=== PATIENT | female | born 1945 | race Caucasian/White ===

== ENCOUNTER 2021-08-01 15:48 | Emergency (ER) | payer OTHER, SELFPAY ==
[~2021-08-01] VITALS: Ht 157.5 cm; Wt 83.0 kg
--- NOTE | 2021-08-01 15:50 | NUR ---
Placed in room 1 . Placed on manager equipment, blood pressure machine and pulse oximeter. To gown for exam. Side rails up.
--- NOTE | 2021-08-01 15:50 | NUR ---
Pt bib ambulance with c/o chest pain, non-radiating 5/10 x approx 2 hours. Reports it started after she was cleaning with some chemicals that she had used before. She thought it was indigestion and took some tums without any relief. EKG show NSR, v/s stable, no acute distress noted.
[2021-08-01 15:53] VITALS: BP_SYST 158
--- NOTE | 2021-08-01 15:55 | NUR ---
ER Dr. Segovia at bedside examining patient.
--- NOTE | 2021-08-01 16:09 | NUR ---
Radiology at bedside for CXR
[2021-08-01 16:44] LABS: BASOPHILS % (AUTO) 0.2 % (0.0-2.0); EOSINOPHILS # (AUTO) 0.1 K/uL (0.0-0.4); EOSINOPHILS % (AUTO) 0.6 % (0.0-4.0); HEMATOCRIT 36.7 % (36-48); HEMOGLOBIN 12.3 g/dL (12.0-16.0); LYMPHOCYTES # (AUTO) 0.9 K/uL (1.0-5.5); LYMPHOCYTES % (AUTO) 10.2 % (20.5-51.5); MEAN CORPUSCULAR HEMOGLOBIN 30 pg (27-31); MEAN CORPUSCULAR HGB CONC 33 % (32-36); MEAN CORPUSCULAR VOLUME 88 fL (79.0-98.0); MONOCYTES # (AUTO) 0.5 K/uL (0.0-1.0); MONOCYTES % (AUTO) 5.7 % (1.7-9.3); NEUTROPHILS # (AUTO) 7.1 K/uL (1.8-7.7); NEUTROPHILS % (AUTO) 83.3 % (40.0-70.0); PLATELET COUNT (AUTO) 217 K/uL (130-430); RED BLOOD CELL COUNT(AUTO) 4.16 MIL/uL (4.2-6.2); RED CELL DISTRIBUTION WIDTH 14.7 % (9.0-15.0); WHITE BLOOD COUNT (AUTO) 8.5 K/uL (4.8-10.8)
[2021-08-01 16:59] LABS: ANION GAP 13 (5-15); CALCIUM 9.4 mg/dL (8.4-11.0); CHLORIDE 100 mmol/L (98-107); CREATININE 0.93 mg/dL (0.55-1.30); GLUCOSE 128 mg/dL (70-99); POTASSIUM 3.4 mmol/L (3.5-5.1); SODIUM SERUM 139 mmol/L (136-145); UREA NITROGEN, BLOOD 19 mg/dL (8-21)
[2021-08-01 17:05] LABS: ALANINE AMINOTRANSFERASE 26 U/L (12-78); ALBUMIN 3.7 g/dL (3.4-4.8); ASPARTATE AMINOTRANSFERASE 20 U/L (10-37); TOTAL BILIRUBIN 0.3 mg/dL (0.0-1.0)
--- NOTE | 2021-08-01 19:00 | NUR ---
Care of patient endorsed to MANNIE Fry. Pt currently resting in bed, no acute distress noted.
--- NOTE | 2021-08-01 19:08 | NUR ---
REPORT RECEIEVED FROM MANNIE MOYER. PT PENDING SECOND TROPONIN LEVEL. PT MADE AWARE.
[2021-08-01] MEDS ORDERED: OMEP20TA20 PO (19:53)
[2021-08-01 20:15] VITALS: BP_SYST 158
--- NOTE | 2021-08-01 20:16 | NUR ---
Patient given written and verbal discharge instructions and verbalizes understanding. DR. TARUN LANGLEY MD discussed with patient the results and treatment provided. Patient in stable condition. ID arm band removed. Rx of OMEPRAZOLE given. Patient educated on pain management and to follow up with PMD. Pain Scale 0/10. Opportunity for questions provided and answered. Medication side effect fact sheet provided.
== END 2021-08-01 20:15 | disposition home or self-care (01) ==
LOC: SED 15:48
DX: R07.2 Precordial pain (principal); I10 Essential (primary) hypertension; E11.9 Type 2 diabetes mellitus without complications; Z79.899 Other long term (current) drug therapy
CPT/HCPCS: 36415; 71045; 80053; 84484; 85025; 93005; 99285

== ENCOUNTER 2022-09-30 15:07 | Emergency (ER) | payer OTHER ==
[~2022-09-30] VITALS: Ht 157.5 cm; Wt 83.9 kg
[~2022-09-30 15:07] MED LIST: OMEP20TA20 PO
[2022-09-30 15:10] VITALS: BP_SYST 146
--- NOTE | 2022-09-30 15:10 | NUR ---
Patient triaged and placed in waiting room. VSS and patient appears in no acute distress at this time. Accompanied by SELF, awaiting available bed, and MD notified of need for MSE.
--- NOTE | 2022-09-30 15:10 | NUR ---
Note [place] in ED - 09/30/22 at 1551 by [email or web address] Placed in room 08 . Placed on registered nurse cardiac telemetry, blood pressure machine and pulse oximeter. To gown for exam. Side rails up. Report given to MANNIE TALBERT.
--- NOTE | 2022-09-30 15:51 | NUR ---
Patient to ER bed 8 to gown for evaluation. Side rails up. Report given to MANNIE TALBERT.
--- NOTE | 2022-09-30 16:20 | NUR ---
MD at bedside assessing pt
[2022-09-30] MEDS ORDERED: ONDANSETRON HCL 4 MG/2 ML VIAL IVP ONE (16:30)
[2022-09-30] MEDS ORDERED: MORPHINE 4 MG INJ. 4 MG/ML VIAL IVP ONE (16:30)
[2022-09-30] MEDS ORDERED: ACETAMINOPHEN 500 MG TABLET PO ONE (16:30)
--- NOTE | 2022-09-30 17:01 | NUR ---
Pt came from home where she complained of left sharp pain and numbness to left leg radiating from inner thight to lower foot. Pt afebrile and on plavix with history of diabetes, HTN, and DVT after childbirth. Pt complains of right foot numbness as well and sensitivity to codiene as it makes her throw up
[2022-09-30 17:02] LABS: BASOPHILS % (AUTO) 0.3 % (0.0-2.0); EOSINOPHILS # (AUTO) 0.1 K/uL (0.0-0.4); EOSINOPHILS % (AUTO) 0.7 % (0.0-4.0); HEMATOCRIT 34.6 % (36-48); LYMPHOCYTES # (AUTO) 1.2 K/uL (1.0-5.5); LYMPHOCYTES % (AUTO) 12.1 % (20.5-51.5); MEAN CORPUSCULAR HEMOGLOBIN 30 pg (27-31); MEAN CORPUSCULAR HGB CONC 35 % (32-36); MEAN CORPUSCULAR VOLUME 86 fL (79.0-98.0); MONOCYTES # (AUTO) 0.9 K/uL (0.0-1.0); MONOCYTES % (AUTO) 8.8 % (1.7-9.3); NEUTROPHILS # (AUTO) 7.9 K/uL (1.8-7.7); NEUTROPHILS % (AUTO) 78.1 % (40.0-70.0); PLATELET COUNT (AUTO) 228 K/uL (130-430); RED BLOOD CELL COUNT(AUTO) 4.01 MIL/uL (4.2-6.2); RED CELL DISTRIBUTION WIDTH 14.4 % (9.0-15.0); WHITE BLOOD COUNT (AUTO) 10.2 K/uL (4.8-10.8)
[2022-09-30 17:32] LABS: ALANINE AMINOTRANSFERASE 38 U/L (12-78); ALBUMIN 3.6 g/dL (3.4-4.8); ANION GAP 7 (5-15); ASPARTATE AMINOTRANSFERASE 32 U/L (10-37); CALCIUM 9.8 mg/dL (8.4-11.0); CHLORIDE 103 mmol/L (98-107); GLUCOSE 116 mg/dL (70-99); TOTAL BILIRUBIN 0.5 mg/dL (0.0-1.0); UREA NITROGEN, BLOOD 16 mg/dL (8-21)
--- NOTE | 2022-09-30 18:23 | NUR ---
Pt states pain medication helped reduce pain, resting comfortably in bed
[2022-09-30] MEDS ORDERED: ACET-2634 PO (18:47)
--- NOTE | 2022-09-30 19:12 | NUR ---
Pt discharged, IV taken out, wrist band removed. Pt left stable and feeling good about visit, educated on medications and proper care going forward
[2022-09-30 19:13] VITALS: BP_SYST 146
--- NOTE | 2022-09-30 19:13 | NUR ---
Patient given written and verbal discharge instructions and verbalizes understanding. ER MD discussed with patient the results and treatment provided. Patient in stable condition. ID arm band removed. IV catheter removed intact and dressing applied, no active bleeding. Rx of tYLENOL given. Patient educated on pain management and to follow up with PMD. Opportunity for questions provided and answered. Medication side effect fact sheet provided.
== END 2022-09-30 19:13 | disposition home or self-care (01) ==
LOC: SED 15:07
DX: M79.662 Pain in left lower leg (principal); R20.2 Paresthesia of skin; E78.5 Hyperlipidemia, unspecified; E11.9 Type 2 diabetes mellitus without complications; I10 Essential (primary) hypertension; Z88.5 Allergy status to narcotic agent; Z79.899 Other long term (current) drug therapy
CPT/HCPCS: 99285; 96374; 93971; 96375; 80053; 82962; 85025; 36415; 73502; 73564; J2405; J2270

== ENCOUNTER 2023-06-27 05:17 | Emergency (ER) | payer OTHER ==
[~2023-06-27] VITALS: Ht 154.9 cm; Wt 82.1 kg
[~2023-06-27 05:17] MED LIST changes: +ACET-2634 PO
[2023-06-27 05:35] VITALS: BP_SYST 138; PULSE 79; RESP 19; TEMP 97.9; O2SAT 99
[2023-06-27] MEDS ORDERED: NACL 0.9% 1,000 ML IV ONE (05:45)
[2023-06-27 06:02] LABS: BASOPHILS % (AUTO) 0.4 % (0.0-2.0); EOSINOPHILS # (AUTO) 0.1 K/uL (0.0-0.4); EOSINOPHILS % (AUTO) 0.9 % (0.0-4.0); HEMATOCRIT 35.2 % (36-48); HEMOGLOBIN 11.4 g/dL (12.0-16.0); LYMPHOCYTES # (AUTO) 0.9 K/uL (1.0-5.5); MEAN CORPUSCULAR HEMOGLOBIN 28 pg (27-31); MEAN CORPUSCULAR HGB CONC 32 % (32-36); MEAN CORPUSCULAR VOLUME 87 fL (79.0-98.0); MONOCYTES % (AUTO) 10.4 % (1.7-9.3); NEUTROPHILS # (AUTO) 7.3 K/uL (1.8-7.7); NEUTROPHILS % (AUTO) 78.3 % (40.0-70.0); PLATELET COUNT (AUTO) 244 K/uL (130-430); RED BLOOD CELL COUNT(AUTO) 4.06 MIL/uL (4.2-6.2); RED CELL DISTRIBUTION WIDTH 15.5 % (9.0-15.0); WHITE BLOOD COUNT (AUTO) 9.4 K/uL (4.8-10.8)
[2023-06-27 06:28] LABS: BILIRUBIN,URINE 1+ (NEGATIVE); CLARITY/URINE CLEAR (CLEAR); COLOR,URINE YELLOW (YELLOW); GLUCOSE,URINE NEGATIVE (NEGATIVE); KETONES,URINE NEGATIVE (NEGATIVE); LEUKOCYTE ESTERASE ,URINE NEGATIVE (NEGATIVE); NITRITE, URINE NEGATIVE (NEGATIVE); PROTEIN URINE NEGATIVE (NEGATIVE)
[2023-06-27] MEDS ORDERED: KETOROLAC TROMETHAMINE 30 MG VIAL IVP ONE (06:30)
[2023-06-27 06:32] LABS: ANION GAP 7 (5-15); CALCIUM 9.2 mg/dL (8.4-11.0); CARBON DIOXIDE 27 mmol/L (23-29); CHLORIDE 101 mmol/L (98-107); GLUCOSE 108 mg/dL (74-106); POTASSIUM 3.9 mmol/L (3.5-5.1); SODIUM SERUM 135 mmol/L (136-145); UREA NITROGEN, BLOOD 13 mg/dL (8-21)
[2023-06-27 06:34] LABS: BLOOD, URINE TRACE (NEGATIVE)
[2023-06-27 06:36] LABS: BACTERIA,URINE None Seen /HPF (None Seen); WBC,URINE 0-3 /HPF (0-3)
[2023-06-27 06:37] LABS: ALANINE AMINOTRANSFERASE 18 U/L (12-78); ALBUMIN 2.8 g/dL (3.4-4.8); ASPARTATE AMINOTRANSFERASE 16 U/L (10-37); TOTAL BILIRUBIN 0.6 mg/dL (0.0-1.0); TOTAL PROTEIN, SERUM 7.5 g/dL (6.4-8.3)
[2023-06-27] MEDS ORDERED: ONDANSETRON HCL 4 MG/2 ML VIAL IVP ONE (07:30)
[2023-06-27] MEDS ORDERED: metroNIDAZOLE 500 mg/NS 100 ML IV ONE (10:00)
[2023-06-27] MEDS ORDERED: IBUP-1969 PO ×2 (10:35)
[2023-06-27] MEDS ORDERED: MAGN296S8 PO (10:35)
[2023-06-27] MEDS ORDERED: ACET-2634 PO (10:49)
[2023-06-27 11:03] VITALS: BP_SYST 132; PULSE 75; RESP 16; TEMP 97.9; O2SAT 97
[2023-06-27] MEDS ORDERED: PIPERACILLIN/TAZO 3.375/DEX-IS 50 ML IV SCH (12:00)
== END 2023-06-27 10:40 | disposition left against medical advice (07) ==
LOC: SED 05:17 → SMU 10:26 → UNDOADMIN 10:26 → UNDODISIN 10:40 → SMU 10:40
DX: K57.92 Diverticulitis of intestine, part unspecified, without perforation or abscess without bleeding (principal); R10.32 Left lower quadrant pain; E11.9 Type 2 diabetes mellitus without complications; I10 Essential (primary) hypertension; E78.5 Hyperlipidemia, unspecified; Z88.5 Allergy status to narcotic agent; Z88.6 Allergy status to analgesic agent; Z79.899 Other long term (current) drug therapy
CPT/HCPCS: 99285; 74176; 96374; 96361; 96375; 80053; 81000; 85025; 87040; 36415; 76376; 83605; J1885; J2405; J7030; J2543

== ENCOUNTER 2023-08-26 06:54 | Emergency (ER) | payer OTHER ==
[~2023-08-26] VITALS: Ht 157.5 cm; Wt 81.2 kg
[~2023-08-26 06:54] MED LIST changes: +MAGN296S8 PO
[2023-08-26 07:05] VITALS: BP_SYST 163; PULSE 69; RESP 16; TEMP 97.9; O2SAT 100
[2023-08-26 08:17] LABS: BLOOD, URINE 2+ (NEGATIVE); GLUCOSE,URINE 1+ (NEGATIVE); KETONES,URINE TRACE (NEGATIVE); NITRITE, URINE POSITIVE (NEGATIVE); PROTEIN URINE 2+ (NEGATIVE)
[2023-08-26 08:17] LABS: BASOPHILS % (AUTO) 0.3 % (0.0-2.0); EOSINOPHILS # (AUTO) 0.1 K/uL (0.0-0.4); EOSINOPHILS % (AUTO) 0.8 % (0.0-4.0); HEMATOCRIT 35.7 % (36-48); HEMOGLOBIN 11.3 g/dL (12.0-16.0); LYMPHOCYTES # (AUTO) 0.8 K/uL (1.0-5.5); LYMPHOCYTES % (AUTO) 11.8 % (20.5-51.5); MEAN CORPUSCULAR HEMOGLOBIN 28 pg (27-31); MEAN CORPUSCULAR HGB CONC 32 % (32-36); MEAN CORPUSCULAR VOLUME 89 fL (79.0-98.0); MONOCYTES # (AUTO) 0.6 K/uL (0.0-1.0); MONOCYTES % (AUTO) 8.6 % (1.7-9.3); NEUTROPHILS # (AUTO) 5.6 K/uL (1.8-7.7); NEUTROPHILS % (AUTO) 78.5 % (40.0-70.0); PLATELET COUNT (AUTO) 256 K/uL (130-430); RED BLOOD CELL COUNT(AUTO) 4.03 MIL/uL (4.2-6.2); RED CELL DISTRIBUTION WIDTH 17.1 % (9.0-15.0); WHITE BLOOD COUNT (AUTO) 7.1 K/uL (4.8-10.8)
[2023-08-26 08:19] LABS: BILIRUBIN,URINE NEGATIVE (NEGATIVE); CLARITY/URINE HAZY (CLEAR); UROBILINOGEN,URINE >=8 (0.2-1.0)
[2023-08-26 08:20] LABS: COLOR,URINE ORANGE (YELLOW)
[2023-08-26 08:22] LABS: LEUKOCYTE ESTERASE ,URINE 3+ (NEGATIVE)
[2023-08-26 08:29] LABS: BACTERIA,URINE MANY /HPF (None Seen); WBC,URINE 20-50 /HPF (0-3)
[2023-08-26 08:31] LABS: MUCUS,URINE 1+ /LPF (None Seen)
[2023-08-26 08:32] LABS: ANION GAP 6 (5-15); CARBON DIOXIDE 29 mmol/L (23-29); CHLORIDE 98 mmol/L (98-107); GLUCOSE 153 mg/dL (74-106); POTASSIUM 3.9 mmol/L (3.5-5.1); SODIUM SERUM 133 mmol/L (136-145)
[2023-08-26 08:33] LABS: CALCIUM 9.6 mg/dL (8.4-11.0); CREATININE 0.82 mg/dL (0.55-1.30); UREA NITROGEN, BLOOD 16 mg/dL (8-21)
[2023-08-26] MEDS ORDERED: cefTRIAXone 1 GM in LIDOCAINE 1%, 20 ML MDV 2.1 ML IM ONE (09:00)
[2023-08-26 09:06] LABS: ALANINE AMINOTRANSFERASE 24 U/L (12-78); ALBUMIN 3.4 g/dL (3.4-4.8); ASPARTATE AMINOTRANSFERASE 19 U/L (10-37); TOTAL BILIRUBIN 0.7 mg/dL (0.0-1.0); TOTAL PROTEIN, SERUM 7.9 g/dL (6.4-8.3)
[2023-08-26] MEDS ORDERED: AMOX-423 PO (09:24)
[2023-08-26] MEDS ORDERED: CLOT15CR5 TP (09:24)
[2023-08-26 09:37] VITALS: BP_SYST 114; PULSE 65; RESP 19; TEMP 98.7; O2SAT 98
== END 2023-08-26 09:36 | disposition home or self-care (01) ==
LOC: SED 06:54
DX: N39.0 Urinary tract infection, site not specified (principal); K57.92 Diverticulitis of intestine, part unspecified, without perforation or abscess without bleeding; B35.6 Tinea cruris; R35.0 Frequency of micturition; R30.0 Dysuria; R10.30 Lower abdominal pain, unspecified; E11.9 Type 2 diabetes mellitus without complications; I10 Essential (primary) hypertension; E78.5 Hyperlipidemia, unspecified; Z88.5 Allergy status to narcotic agent; Z88.6 Allergy status to analgesic agent; Z79.899 Other long term (current) drug therapy
CPT/HCPCS: 99285; 74176; 80053; 81000; 85025; 36415; 76376; 96372; 83605; 82397; J0696; J2001